=== PATIENT | female | born 1945 | race Caucasian/White ===

== ENCOUNTER → 2018-10-05 | Outpatient (CLI) | payer OTHER | END | disposition home or self-care (01) | LOC: OIH 08:39 | PROVIDERS: ATTEND Family Medicine | DX: L03.011 Cellulitis of right finger (principal) | CPT/HCPCS: 73140 ==

== ENCOUNTER → 2019-09-25 | Outpatient (CLI) | payer OTHER ==
[~2019-09-25] MED LIST: HONEY 1 APPL/ML TUBE TP ONE; LIDOCAINE/PRILOCAINE CREAM 5GM TUBE TP ONE
[2019-09-25 14:18] VITALS: BP 167/76
== END | disposition home or self-care (01) ==
LOC: WHH 09:30
PROVIDERS: ATTEND Podiatrist Foot & Ankle Surgery
DX: E11.622 Type 2 diabetes mellitus with other skin ulcer (principal); L97.322 Non-pressure chronic ulcer of left ankle with fat layer exposed; E11.40 Type 2 diabetes mellitus with diabetic neuropathy, unspecified; E11.51 Type 2 diabetes mellitus with diabetic peripheral angiopathy without gangrene; I10 Essential (primary) hypertension; E78.5 Hyperlipidemia, unspecified; E03.9 Hypothyroidism, unspecified; E66.01 Morbid (severe) obesity due to excess calories; M19.90 Unspecified osteoarthritis, unspecified site; F32.9 Major depressive disorder, single episode, unspecified; Z85.3 Personal history of malignant neoplasm of breast
CPT/HCPCS: 11042; 87070; J3490 ×2

== ENCOUNTER → 2019-11-06 | Outpatient (CLI) | payer OTHER ==
[~2019-11-06] MED LIST changes: +ASPI-1197 PO; +ATOR40TA71 PO; +CETI10TA57 PO; -HONEY 1 APPL/ML TUBE TP ONE; +IRON PO; +LEVO150T11 PO; -LIDOCAINE/PRILOCAINE CREAM 5GM TUBE TP ONE; +LISI-617 PO; +NOVOLIN 70/30 SQ; +SERT100T12 PO
[2019-11-06 14:42] VITALS: BP 92/48
== END | disposition home or self-care (01) ==
LOC: WHH 10:30
PROVIDERS: ATTEND Podiatrist Foot & Ankle Surgery
DX: E11.622 Type 2 diabetes mellitus with other skin ulcer (principal); L97.311 Non-pressure chronic ulcer of right ankle limited to breakdown of skin; L97.321 Non-pressure chronic ulcer of left ankle limited to breakdown of skin; E11.22 Type 2 diabetes mellitus with diabetic chronic kidney disease; I13.0 Hypertensive heart and chronic kidney disease with heart failure and stage 1 through stage 4 chronic kidney disease, or unspecified chronic kidney disease; N18.9 Chronic kidney disease, unspecified; I50.23 Acute on chronic systolic (congestive) heart failure; E11.40 Type 2 diabetes mellitus with diabetic neuropathy, unspecified; E11.51 Type 2 diabetes mellitus with diabetic peripheral angiopathy without gangrene; E11.69 Type 2 diabetes mellitus with other specified complication; M19.90 Unspecified osteoarthritis, unspecified site; M81.0 Age-related osteoporosis without current pathological fracture; S90.112A Contusion of left great toe without damage to nail, initial encounter; E87.6 Hypokalemia; E03.9 Hypothyroidism, unspecified; M79.89 Other specified soft tissue disorders; E66.01 Morbid (severe) obesity due to excess calories; D64.9 Anemia, unspecified; E78.5 Hyperlipidemia, unspecified; F32.9 Major depressive disorder, single episode, unspecified; Z88.7 Allergy status to serum and vaccine; Z68.41 Body mass index [BMI] 40.0-44.9, adult; Z98.41 Cataract extraction status, right eye; Z98.42 Cataract extraction status, left eye; Z79.899 Other long term (current) drug therapy; Z85.89 Personal history of malignant neoplasm of other organs and systems; Z85.3 Personal history of malignant neoplasm of breast; W19.XXXA Unspecified fall, initial encounter; Y93.89 Activity, other specified; Y92.098 Other place in other non-institutional residence as the place of occurrence of the external cause; Y99.8 Other external cause status
CPT/HCPCS: 73630; A4450; A6207; A6452; G0463

== ENCOUNTER → 2023-02-10 | Outpatient (CLI) | payer MEDICARE, OTHER ==
[~2023-02-10] MED LIST changes: -LISI-617 PO; +LISI5TAB21 PO; +SERT-440 PO; -SERT100T12 PO
== END | disposition home or self-care (01) ==
LOC: RAH 12:08
PROVIDERS: ATTEND Internal Medicine
DX: I08.8 Other rheumatic multiple valve diseases (principal); R06.02 Shortness of breath
CPT/HCPCS: 71250; 93306

== ENCOUNTER → 2023-07-05 | Outpatient (CLI) | payer MEDICARE | END | disposition home or self-care (01) | LOC: RAH 13:20 | PROVIDERS: ATTEND Internal Medicine Gastroenterology | DX: M19.041 Primary osteoarthritis, right hand (principal); M25.441 Effusion, right hand | CPT/HCPCS: 73140 ==

== ENCOUNTER → 2024-07-26 | Outpatient (CLI) | payer MEDICARE | END | disposition home or self-care (01) | LOC: RAH 12:54 | PROVIDERS: ATTEND Internal Medicine Cardiovascular Disease | DX: Z01.810 Encounter for preprocedural cardiovascular examination (principal); I10 Essential (primary) hypertension | CPT/HCPCS: 93306 ==

== ENCOUNTER → 2024-11-20 | Outpatient (CLI) | payer MEDICARE ==
--- NOTE | 2024-11-20 11:34 | HMCIMG ---
US VENOUS DOPPLER UNILATERAL REASON: SWELLING OF LEFT EXTREMITY COMPARISON: None Technique: Left venous doppler ultrasound was performed with spectral analysis and color flow imaging technique. FINDINGS: There is a normal appearance of the common femoral, deep femoral, the profunda femoris and popliteal veins. Proximal calf veins appear normal as well. There is normal response to compression and augmentation. There is no evidence of deep venous thrombosis. IMPRESSION: Normal left lower extremity venous Doppler ultrasound.
== END | disposition home or self-care (01) ==
LOC: RAH 09:51
PROVIDERS: ATTEND Family Medicine
DX: L03.116 Cellulitis of left lower limb (principal); M79.89 Other specified soft tissue disorders; L97.529 Non-pressure chronic ulcer of other part of left foot with unspecified severity
CPT/HCPCS: 93971